=== PATIENT | female | born 1945 | race Asian ===

== ENCOUNTER 2017-09-24 12:31 | Emergency (ER) | payer MEDICARE, OTHER ==
[~2017-09-24] VITALS: Wt 73.7 kg
[2017-09-24] MEDS ORDERED: AZITHROMYCIN 250 MG TAB PO ONE (15:00)
[2017-09-24] MEDS ORDERED: AZIT250T94 PO (15:07)
[2017-09-24] MEDS ORDERED: OSLT75C PO (15:07)
--- NOTE | 2017-09-24 20:02 | ERD ---
ER Documentation Chief Complaint Chief Complaint COUGH WITH PHLEGM, ONSET 3 DAYS, FEVER AT HOME HPI This is a very pleasant 72-year-old female that presents to the emergency department complaining of 3 days of tactile fever shaking and chills, productive cough and generalized myalgias with antipyretics taken roughly 6 hours prior to arrival. The patient indicates she has had multiple sick contacts with similar symptoms of the holidays. Her has also had similar symptoms which prompted him to come to the emergency department to be evaluated as well. The patient smokes tobacco. She denies any chest pain or pressure that radiates the neck arm back or jaw. She has not recently been on any antibiotics. She denies any abdominal pain. She denies any hemoptysis hematemesis or melanotic stools and no recent travel or hospitalizations. ROS All systems reviewed and are negative except as per history of present illness. Medications Home Meds Active Scripts Azithromycin* (Zithromax*) 250 Mg Tablet, 250 MG PO DAILY for 4 Days, TAB Prov:JÚNIOR ADEN 09/24/17 Oseltamivir Phosphate* (Tamiflu*) 75 Mg Capsule, 75 MG PO BID for 5 Days, CAP Prov:JÚNIOR ADEN 09/24/17 Allergies Allergies: Coded Allergies: alendronate sodium (Verified Allergy, Unknown, 03/12/14) ibandronate sodium (Verified Allergy, Unknown, 03/12/14) PMhx/Soc Medical and Surgical Hx: pt denies Medical Hx, pt denies Surgical Hx Hx Alcohol Use: No Hx Substance Use: No Hx Tobacco Use: No Smoking Status: Never smoker Physical Exam Vitals Vital Signs Date Time Temp Pulse Resp B/P Pulse Ox O2 Delivery O2 Flow Rate FiO2 09/24/17 12:35 98.1 110 17 136/97 98 Physical Exam Constitutional:Well-developed. Well-nourished. HEENT:Normocephalic. Atraumatic.Pupils were equal round reactive to light. Dry mucous membranes.No tonsillar exudates. Neck: No nuchal rigidity. No lymphadenopathy. No posterior cervical spine tenderness or step-offs. Respiratory: Not using accessory muscles of respiration.Lungs were clear to auscultation bilaterally. No rhonchi. No rales. No wheezing. Cardiovascular: Regular rate regular rhythm.No murmurs. No rubs were appreciated.S1, S2 normal. Distal pulses are palpable 2+ bilaterally. GI: Abdomen was soft. Nontender. Non Distended. No pulsatile abdominal masses or bruits. No rebound. No guarding. Bowel sounds were present and normal. Muscle skeletal: Full range of motion of both the upper and lower extremities bilaterally.Normal muscle tone.No assymetrical calf tenderness or swelling. Skin: No petechia, no purpura. No lesions on the palms or the soles of the feet. No maculopapular rash. NEURO: Patient was alert, awake, orientated x3.No facial droop. Gait observed and normal with no ataxia.Speech had regular rate and rhythm. No focal neurological deficits. Results 24 hrs Current Medications Medications (Trade) Dose Ordered Sig/Teresa Route PRN Reason Start Time Stop Time Status Last Admin Dose Admin Azithromycin (Zithromax) 500 mg ONCE ONCE PO 09/24/17 15:00 09/24/17 15:01 DC 09/24/17 14:48 Procedures/MDM This patient presented to the emergency department fever shaking chills and signs of a flulike illness. She was nontoxic in appearance and her influenza swab was positive for influenza A. The patient was sent home with prescription of Tamiflu and also requested a prescription of antibiotics given that she has had recurrent episodes of bronchitis. Therefore she received her first dose of azithromycin in the emergency department and sent home with a Z-Dale. She will follow-up with her PCP. The patient was discharged home in fair condition. They were instructed to return to the emergency department at any time if there was any worsening of their condition. The patient stated they would follow up with their PCP in the next 24-48 hours to initiate a suitable medication regimen under the care of their PCP as well as to allow their PCP to monitor any drug reactions. The patient was discharged home with prescriptions after they gave informed consent to the new medication. They were also fully informed by myself on the adverse effects and adverse drug interactions in order to provide adequate safeguards to prevent possible adverse reactions to medications. Departure Diagnosis: Primary Impression: Influenza Condition: Fair Patient Instructions: Influenza (Adult) Referrals: SATNAM SMITH MD (PCP) JÚNIOR ADEN Sep 24, 2017 20:02
== END 2017-09-24 15:31 | disposition home or self-care (01) ==
LOC: FTE 12:31
DX: J10.1 Influenza due to other identified influenza virus with other respiratory manifestations (principal)
CPT/HCPCS: 87400; 99284

== ENCOUNTER 2018-03-22 06:04 | Emergency (ER) | END 2018-03-22 09:01 | disposition home or self-care (01) ==